=== PATIENT | female | born 1965 | race Caucasian/White ===

== ENCOUNTER 2023-04-04 10:46 | Day surgery (SDC) | payer OTHER ==
[2023-04-04] MEDS ORDERED: Sodium Chloride 0.9% 10 ML Syringe FLUSH PRN ×2 (11:25→13:45)
[2023-04-04] MEDS ORDERED: Sodium Chloride 0.9% 1,000 ML IV ONE (11:25)
[2023-04-04] MEDS ORDERED: Ondansetron 4 MG/2 ML SDV IVPUSH ONE ×2 (11:25→13:38)
[2023-04-04 11:38] LABS: BASOPHILS ABSOLUTE AUTO 0.03 K/mm3 (0.01-0.08); BASOPHILS PERCENT AUTO 0.2 % (0.1-1.2); EOSINOPHILS ABSOLUTE AUTO 0.07 K/mm3 (0.04-0.36); EOSINOPHILS PERCENT AUTO 0.4 (0.7-5.8); HEMATOCRIT 42.4 % (34.1-44.9); HEMOGLOBIN 13.9 gm/dl (11.2-15.7); IMMATURE GRAN ABSOLUTE AUTO 0.03 K/mm3 (0.00-0.10); IMMATURE GRAN PERCENT AUTO 0.2 % (<=1.0); LYMPHOCYTES ABSOLUTE AUTO 1.71 K/mm3 (1.18-3.74); MEAN CORPUSCULAR HEMOGLOBIN 29.1 pg (25.6-32.2); MEAN CORPUSCULAR HGB CONC 32.8 g/dl (32.2-35.5); MEAN CORPUSCULAR VOLUME 88.7 fl (79.4-94.8); MEAN PLATELET VOLUME 9.4 fl (9.4-12.3); MONOCYTES PERCENT AUTO 6.5 % (4.7-12.5); NEUTROPHILS ABSOLUTE AUTO 14.09 K/mm3 (1.56-6.13); NEUTROPHILS PERCENT AUTO 82.7 % (34.0-71.1); PLATELET COUNT,PLT 310 K/mm3 (182-369); RED BLOOD CELL COUNT 4.78 M/mm3 (3.98-5.22); WHITE BLOOD CELL COUNT,WBC 17.03 K/mm3 (3.98-10.04)
[2023-04-04 12:04] LABS: A/G RATIO 0.8 (1-2); ALBUMIN 3.7 g/dl (3.4-5.0); ANION GAP 16.2 (5-15); BILIRUBIN TOTAL 0.8 mg/dL (0.2-1.0); BUN/CREATININE RATIO 11.3 (14-18); C-REACTIVE PROTEIN 11.1 mg/dL (<1.0); CALCIUM 9.3 mg/dL (8.5-10.1); CREATININE 0.8 mg/dL (0.55-1.02); POTASSIUM,K 4.2 mEq/L (3.5-5.1); PROTEIN TOTAL,TP 8.2 g/dl (6.4-8.2)
[2023-04-04 13:26] LABS: APPEARANCE,URINE CLEAR (Clear); BILIRUBIN,URINE NEGATIVE (Negative); COLOR,URINE YELLOW (Yellow); GLUCOSE,URINE NEGATIVE (Negative); KETONES,URINE NEGATIVE (Negative); LEUKOCYTE ESTERASE,URINE NEGATIVE (Negative); NITRITE,URINE NEGATIVE (Negative); OCCULT BLOOD,URINE TRACE-LYSED (Negative); PROTEIN,URINE 2+ (Negative); UROBILINOGEN,URINE 0.2 (0.2-1.0)
[2023-04-04] MEDS ORDERED: HYDROmorphone 0.5 MG/0.5 ML Syringe IVPUSH ONE (13:38)
[2023-04-04] MEDS ORDERED: Iopamidol 612 MG/ML 100 ML Bottle IVPUSH ONE (13:45)
[2023-04-04 13:58] LABS: RBC,URINE 0-5 /hpf (0-5); WBC,URINE NOT SEEN /hpf (0-5)
[2023-04-04 13:59] LABS: BACTERIA,URINE FEW /hpf (FEW); MUCUS,URINE RARE /hpf (FEW); SQUAMOUS EPITHELIAL CELLS,UR NOT SEEN /hpf (0-5)
[2023-04-04] MEDS ORDERED: Bupivacaine 0.5%/EPINEPHrine 1:200,000 50 ML MDV ONE (15:05)
[2023-04-04] MEDS ORDERED: Lidocaine 1% 30 ML SDV ONE (15:06)
[2023-04-04] MEDS ORDERED: cefOXitin 2 GM in Sodium Chloride 0.9% 50 ML IV ONE (15:22)
[2023-04-04] MEDS ORDERED: Midazolam 1 MG/ML 2 ML SDV ONE (15:35)
[2023-04-04] MEDS ORDERED: Propofol 200 MG/20 ML SDV ONE (15:35)
[2023-04-04] MEDS ORDERED: fentaNYL 250 MCG/5 ML SDV ONE (15:36)
[2023-04-04] MEDS ORDERED: Lidocaine 1% 8 ML ONE (15:37)
[2023-04-04] MEDS ORDERED: Succinylcholine 200 MG/10 ML MDV ONE (15:39)
[2023-04-04] MEDS ORDERED: EPINEPHrine 1 MG/ML SDV ONE (15:55)
[2023-04-04] MEDS ORDERED: Ondansetron 4 MG/2 ML SDV ONE (15:59)
[2023-04-04] MEDS ORDERED: Lactated Ringers 1,000 ML ONE ×2 (15:59→16:10)
[2023-04-04] MEDS ORDERED: HYDROmorphone 0.5 MG/0.5 ML Syringe IVPUSH PRN (16:43)
[2023-04-04] MEDS ORDERED: fentaNYL 100 MCG/2 ML SDV IVPUSH PRN (16:43)
[2023-04-04] MEDS ORDERED: Neostigmine Methylsulfate 10 MG/10 ML MDV ONE (16:45)
[2023-04-04] MEDS ORDERED: Ketorolac 30 MG/ML SDV ONE (17:28)
[2023-04-04] MEDS ORDERED: Lactated Ringers 1,000 ML IV SCH (18:15)
[2023-04-04] MEDS ORDERED: Acetaminophen/oxyCODONE 325-5 MG Tab PO PRN (18:17)
[2023-04-04] MEDS ORDERED: Metoclopramide 10 MG/2 ML SDV IVPUSH PRN (18:43)
[2023-04-04] MEDS ORDERED: Prochlorperazine 5 MG in Sodium Chloride 0.9% 50 ML IV PRN (18:44)
== END 2023-04-04 22:10 | disposition home or self-care (01) ==
LOC: JD.ED 10:46 → JD.SDS 14:43 → JD.MS 22:40
PROVIDERS: ATTEND Surgery
DX: K80.00 Calculus of gallbladder with acute cholecystitis without obstruction (principal); F90.9 Attention-deficit hyperactivity disorder, unspecified type; F41.9 Anxiety disorder, unspecified; F32.A Depression, unspecified; G47.33 Obstructive sleep apnea (adult) (pediatric); M54.30 Sciatica, unspecified side; E66.9 Obesity, unspecified; Z79.899 Other long term (current) drug therapy; Z90.49 Acquired absence of other specified parts of digestive tract; Z96.649 Presence of unspecified artificial hip joint; Z68.25 Body mass index [BMI] 25.0-25.9, adult
CPT/HCPCS: 36415; 47562; 74018; 74177; 80053; 81001; 85025; 86140; 96361; 96374; 96375; 96376; 99284; A9270; J0171; J0330; J0694; J1170; J1885; J2250; J2405; J2704; J2710; J3010; J3490; J7030; J7120; Q9967; 00790; 99140